=== PATIENT | female | born 1995 | race Caucasian/White ===

== ENCOUNTER 2016-10-14 07:30 | Day surgery (SDC) | payer OTHER ==
[~2016-10-14 07:30] MED LIST: ATROPINE SULFATE 0.4 MG/ML 1ML VIAL ONE; HEPARIN SODIUM (PORCINE) 10,000 UNITS/ML VIAL ONE; LACTATED RINGERS 1,000 ML ONE; METOCLOPRAMIDE HCL INJ 10 MG/2 ML VIAL ONE; NEOSTIGMINE METHYLSULFATE 1 MG/ML ML IV ONE; PROPOFOL 200 MG/20 ML VIAL IV ONE; SODIUM CHL 0.9% 100ML MINI-BAG 100 ML IVPB ONE; ceFAZolin SODIUM 1 GM VIAL ONE
[2016-10-14] MEDS ORDERED: ROCURONIUM BROMIDE 10 MG/ML VIAL ONE (07:40)
[2016-10-14] MEDS ORDERED: fentaNYL CITRATE INJ 50 MCG/ML AMP ONE (07:40)
[2016-10-14] MEDS ORDERED: LACTATED RINGERS 1,000 ML ONE (07:41)
[2016-10-14] MEDS ORDERED: LIDOCAINE 2 % GEL 5 ML TUBE TOP ONE (07:41)
[2016-10-14] MEDS: BUPIVACAINE 0.25% W/EPI 50 ML VIAL INJ ONE ×2 (08:53→08:56)
[2016-10-14] MEDS ORDERED: GLUCAGON INJ 1 MG VIAL ONE (09:21)
--- NOTE | 2016-10-14 10:26 | OP ---
DATE OF PROCEDURE: 10/14/16 PREOPERATIVE DIAGNOSIS: 1. Symptomatic cholelithiasis. POSTOPERATIVE DIAGNOSIS: 1. Symptomatic cholelithiasis. 2. Chronic cholecystitis. 3. Non-emptying common bile duct. PROCEDURE: 1. Laparoscopic cholecystectomy with intraoperative cholangiography. SURGEON: Mark Garland MD. CLEANER T[employer]CH UP WORKER: None. ANESTHESIA: Local infiltration of 0.25% Marcaine with epinephrine and general endotracheal anesthesia. INDICATION: The patient is a 21-year-old female who during the last trimester of her recent developed fatty food intolerance, right upper quadrant pain and nausea. It has continued . She has sonographically diagnosed cholelithiasis and after the after the risks, benefits and alternatives to cholecystectomy were discussed and accepted, she was brought to the Surgical Suite today for cholecystectomy. FINDINGS: Her gallbladder was mildly thickened. There were multiple very small stones. The cystic duct was quite small. Intraoperative cholangiography revealed a non-dilated common bile duct with no obvious filling defects or strictures, however, even after 1 mg of Glucagon, the Corgard failed to drain. She had normal preoperative liver enzymes. DESCRIPTION OF PROCEDURE: After adequate general endotracheal anesthesia was obtained, the patient was prepped and draped in the usual sterile manner. Surgical time-out was taken. The infraumbilical area was infiltrated with local anesthesia. A curvilinear incision was fashioned with a sharp knife and dissection was carried down through the skin and subcutaneous tissue to the midline fascia using blunt dissection. Traction sutures were placed on either side of the midline. A small incision was made in the midline fascia and the peritoneum was opened bluntly. Jessica trocar was introduced under direct vision into the abdominal cavity and fixed in place with the traction sutures. CO2 was then insufflated until a pressure of 12 mmHg was reached and the abdomen was tympanitic in all four quadrants. When this was done, the laparoscope was introduced. The abdomen was inspected with the previously noted findings. The patient was then placed in reverse Trendelenburg position, turned to the left side. The upper abdominal ports were placed under direct vision in the usual manner. The gallbladder was grasped, retracted anteriorly and laterally. The neck of the gallbladder was retracted laterally. The triangle of Calot was then explored using blunt dissection with the cystic duct and cystic artery identified. The cystic duct was hemoclipped once proximally. The cystic artery was hemoclipped twice proximally and once distally. A small incision was made in the cystic duct. The cholangiogram catheter was introduced through a separate stab wound in the right upper quadrant, introduced into the cystic duct and clipped in place. Cholangiograms were then taken using fluoroscopy which revealed a non-emptying common bile duct with no filling defects or strictures noted. At this point, 1 mg of Glucagon was given. After two minutes, we attempted multiple cholangiograms which showed much greater filling of the distal common bile duct, but no meniscus was identified, no obvious filling defect and no stricture was identified. Since the patient had tiny stones only and a tiny cystic duct and had had no elevated preoperative liver enzymes, it was decided to remove the cystic duct after clipping the cystic duct distally, which we did three times, and divided the cystic duct. The cystic artery was divided. A second artery was identified and this was clipped twice. The gallbladder was then dissected free from the gallbladder bed of the liver using electrocautery. Excellent hemostasis was noted at the gallbladder bed. The gallbladder was removed from the infraumbilical port site in the usual manner under direct vision. When this was done, the subhepatic space and subphrenic space were irrigated copiously with saline. A small amount of oozing was identified, which was controlled with electrocautery just in the very proximal liver bed. When this was noted to have good hemostasis, the subhepatic space and subphrenic space were irrigated copiously with saline. The troy hepatis was inspected with good hemostasis and no bile leak was identified. The bile leak was identified from the gallbladder bed of the liver. The upper abdominal ports were removed under direct vision and the two lateral 5 mm ports had small bleeding which was controlled with electrocautery. When hemostasis was noted to be adequate, the CO2, the laparoscope and the infraumbilical port were removed. The infraumbilical port site fascia was approximated with a single [id number] suture of 0 Vicryl. Subcutaneous tissue was irrigated with saline. Skin edges were approximated with 4-0 Vicryl subcuticular sutures, benzoin and Steri- Strips. Sterile dressings were applied. The patient was awakened and taken to the Recovery Room in good and stable condition. Estimated blood loss was less than 50 mL. All sponge, needle and instrument counts were correct. #[id number] [facility]
[2016-10-14 10:54] VITALS: BP 99/50; TEMP 98.1; O2SAT 99
[2016-10-14] MEDS ORDERED: ONDANSETRON INJ 4 MG/2 ML VIAL ONE (11:05)
[2016-10-14] MEDS ORDERED: HYDROcodone 5MG/APAP 325MG 1 EA TAB ONE (11:43)
== END 2016-10-14 12:20 | disposition home or self-care (01) ==
LOC: AMB 07:30
PROVIDERS: ATTEND Surgery
DX: K80.10 Calculus of gallbladder with chronic cholecystitis without obstruction (principal); Z79.899 Other long term (current) drug therapy
CPT/HCPCS: 00790; 36415; 47563; 76000; 80053; 81025; 85025; J0690; J1610; J1644; J2405; J2710; J2765; J3010; J3490; J7050; J7120